=== PATIENT | male | born 1970 | race Caucasian/White ===

== ENCOUNTER → 2022-03-28 08:56 | Outpatient (BNVA) | payer OTHER, SELFPAY | PROVIDERS: Family Provider Family Medicine; PCP Family Medicine; Visit Provider Family Medicine | DX: E78.5 Hyperlipidemia, unspecified (principal) | CPT/HCPCS: 80061 ==

== ENCOUNTER → 2022-09-26 09:21 | Outpatient (BNVA) | payer SELFPAY | PROVIDERS: Family Provider Family Medicine; PCP Family Medicine; Visit Provider Family Medicine | DX: E78.5 Hyperlipidemia, unspecified (principal); H81.10 Benign paroxysmal vertigo, unspecified ear | CPT/HCPCS: 80053; 80061; 83036 ==

== ENCOUNTER → 2023-07-26 11:21 | Outpatient (BNVA) | payer OTHER, SELFPAY | PROVIDERS: Family Provider Family Medicine; PCP Family Medicine; Visit Provider Family Medicine | DX: J06.9 Acute upper respiratory infection, unspecified (principal) | CPT/HCPCS: 87071; 87426; 87880 ==

== ENCOUNTER → 2023-10-25 11:07 | Outpatient (BNVA) | payer OTHER, SELFPAY | PROVIDERS: Family Provider Family Medicine; PCP Family Medicine; Visit Provider Family Medicine | DX: E78.5 Hyperlipidemia, unspecified (principal); H81.10 Benign paroxysmal vertigo, unspecified ear; R73.9 Hyperglycemia, unspecified; I10 Essential (primary) hypertension; R73.03 Prediabetes | CPT/HCPCS: 80053; 80061; 83036 ==

== ENCOUNTER → 2024-07-24 08:48 | Outpatient (BNVA) | payer OTHER, SELFPAY | PROVIDERS: Family Provider Family Medicine; PCP Family Medicine; Visit Provider Family Medicine | DX: E78.5 Hyperlipidemia, unspecified (principal); R73.9 Hyperglycemia, unspecified; H81.10 Benign paroxysmal vertigo, unspecified ear | CPT/HCPCS: 80053; 80061; 83036 ==

== ENCOUNTER → 2025-07-22 08:24 | Outpatient (BNVA) | payer OTHER, SELFPAY | PROVIDERS: Family Provider Family Medicine; PCP Family Medicine; Visit Provider Family Medicine | DX: Z00.00 Encounter for general adult medical examination without abnormal findings (principal) | CPT/HCPCS: 80053; 80061; 82306; 84153; 85025 ==